=== PATIENT | male | born 1985 | race Caucasian/White ===

== ENCOUNTER → 2020-07-10 | Outpatient (CLI) | payer OTHER ==
--- NOTE | 2020-07-10 17:00 | RAD ---
Exam: Ultrasound scrotum Indication: Right scrotal pain Technique: Real-time grayscale and color Doppler images of the scrotum were obtained by the [facility]. Comparisons: None FINDINGS: Right testicle measures 3.9 x 3.5 x 2.8 cm. Left testicle measures 4.3 x 3.4 x 2.1 cm. Vascular flow identified within the testicles bilaterally. There is isoechoic epididymal cyst measuring 9 mm. Small bilateral hydroceles. IMPRESSION: 1. Normal sonographic appearance of the testicles without evidence for torsion. 2. Small isoechoic right epididymal cyst, incompletely characterized on this exam. Short-term follow -up imaging in 4-6 weeks to reassess is recommended. Electronically signed by: Pedro Bruno MD (07/10/2020 4:57 PM) KEEGAN
== END ==
LOC: US 15:57
PROVIDERS: ATTEND Nurse Practitioner Family
DX: N50.3 Cyst of epididymis (principal); N50.82 Scrotal pain
CPT/HCPCS: 76870